=== PATIENT | male | born 1970 | race Two or more races ===

== ENCOUNTER 2020-11-01 18:51 | Emergency (ER) | payer OTHER ==
[~2020-11-01] VITALS: Ht 167.6 cm; Wt 100.0 kg
[2020-11-01] MEDS ORDERED: METF-911 PO (18:56)
[2020-11-01] MEDS ORDERED: ASPI-1444 PO (18:56)
[2020-11-01] MEDS ORDERED: LIDOCAINE 1% 10 ML VIAL ID ONE (22:30)
[2020-11-02] VITALS: BP 134/82
== END 2020-11-02 00:16 | disposition home or self-care (01) ==
LOC: EMS 18:51
DX: S61.212A Laceration without foreign body of right middle finger without damage to nail, initial encounter (principal); E11.9 Type 2 diabetes mellitus without complications; I10 Essential (primary) hypertension; Z79.84 Long term (current) use of oral hypoglycemic drugs; Z79.82 Long term (current) use of aspirin; W26.8XXA Contact with other sharp object(s), not elsewhere classified, initial encounter; Y93.89 Activity, other specified; Y92.89 Other specified places as the place of occurrence of the external cause; Y99.8 Other external cause status
CPT/HCPCS: 12001; 82962; 99282; J3490